=== PATIENT | male | born 1950 | race Caucasian/White ===

== ENCOUNTER 2021-09-08 05:39 | Inpatient (IN) ==
[2021-09-08] MEDS ORDERED: VANCOMYCIN INJ 1,000 MG in SODIUM CHLORIDE 0.9% 250 ML IV ONE (06:00)
[2021-09-08] MEDS ORDERED: CLINDAMYCIN INJ 900 MG/50 ML PREMIX IV ONE (06:00)
[2021-09-08] MEDS ORDERED: TRANEXAMIC ACID 1,000 MG/10 ML VIAL ONE (06:32)
[2021-09-08] MEDS ORDERED: BACITRACIN OINT 0.9 GM PACK TOP ONE (06:32)
[2021-09-08] MEDS ORDERED: MIDAZOLAM 2 MG/2 ML VIAL ONE (06:43)
[2021-09-08] MEDS ORDERED: fentaNYL 100 MCG/2 ML VIAL ONE (06:43)
[2021-09-08] MEDS ORDERED: GABAPENTIN 400 MG CAPSULE PO ONE (06:49)
[2021-09-08] MEDS ORDERED: ACETAMINOPHEN 500 MG TABLET PO ONE (06:49)
[2021-09-08] MEDS ORDERED: SCOPOLAMINE 1.5 MG PATCH TRANSDERM ONE (06:49)
[2021-09-08] MEDS ORDERED: FAMOTIDINE 20 MG TABLET PO ONE (06:49)
[2021-09-08] MEDS ORDERED: BUPIVACAINE SPINAL 0.75% 2 ML AMP SPINAL ONE (06:57)
[2021-09-08] MEDS ORDERED: DEXMEDETOMIDINE 200 MCG/2 ML VIAL ONE (06:57)
[2021-09-08] MEDS ORDERED: PHENYLEPHRINE 10 MG/1 ML VIAL IV ONE (06:57)
[2021-09-08] MEDS ORDERED: ROPIVACAINE 0.5% 30 ML VIAL ONE (07:09)
[2021-09-08] MEDS ORDERED: LIDOCAINE 1% 5 ML VIAL ONE (07:09)
[2021-09-08] MEDS ORDERED: LACTATED RINGERS 1,000 ML IV SCH (07:30)
[2021-09-08] MEDS ORDERED: ePHEDrine 50 MG/ML VIAL ONE (08:37)
[2021-09-08] MEDS ORDERED: ONDANSETRON 4 MG/2 ML VIAL ONE (08:48)
[2021-09-08] MEDS ORDERED: ONDANSETRON 4 MG/2 ML VIAL IV PRN (08:54)
[2021-09-08] MEDS ORDERED: MORPHINE 2 MG/1 ML SYRINGE IV PRN ×2 (08:54)
[2021-09-08] MEDS ORDERED: diphenhydrAMINE CAP 25 MG CAPSULE PO PRN (08:54)
[2021-09-08] MEDS ORDERED: ZALEPLON 5 MG CAPSULE PO PRN (08:54)
[2021-09-08] MEDS ORDERED: SODIUM CHLORIDE 0.9% 100 ML IV ONE (09:35)
[2021-09-08] MEDS ORDERED: ALBUMIN 5% 12.5 GM/250 ML VIAL IV ONE ×2 (11:01→11:12)
[2021-09-08] MEDS ORDERED: ceFAZolin 2,000 MG/50 ML DUPLEX IV SCH (13:00)
[2021-09-08] MEDS: LACTATED RINGERS 1,000 ML IV SCH ×2 (14:18→22:53)
[2021-09-08] MEDS: CLINDAMYCIN INJ 900 MG/50 ML PREMIX IV SCH ×2 (14:19→21:54)
[2021-09-08] MEDS: KETOROLAC 15 MG/1 ML VIAL IV SCH ×2 (14:19→18:02)
[2021-09-08] MEDS: GABAPENTIN 300 MG CAPSULE PO SCH (21:54)
[2021-09-08] MEDS: DOCUSATE SODIUM 100 MG CAPSULE PO SCH (21:54)
[2021-09-08] MEDS: SIMVASTATIN 20 MG TABLET PO SCH (21:54)
[2021-09-09] MEDS: KETOROLAC 15 MG/1 ML VIAL IV SCH ×2 (00:50→06:13)
[2021-09-09] MEDS: FONDAPARINUX 2.5 MG/0.5 ML SYRINGE SUBCUT SCH (04:51)
[2021-09-09 05:40] LABS: Basophils % 0.7 % (0.0-0.8); Eosinophils # 0.2 10*3/uL (0.0-0.87); Eosinophils % 3.4 % (0.00-10.9); Hemoglobin 10.5 GM/DL (14.0-18.0); Immature Granulocytes % 0.2 %; Immature Granulocytes Absolute 0.01 #; Lymphocytes # 0.9 10*3/uL (1.4-4.0); Mean Corpuscular HGB Conc 30.9 GM/DL (32-36); Mean Corpuscular Volume 92.4 FL (87-102); Mean Platelet Volume 10.2 FL (9.6-12.0); Monocytes % 12.1 % (1.7-12.7); Neutrophils % 68.6 % (38.7-73.9); Platelet Count 123 T/CUMM (130-400); Red Blood Count 3.68 MC/CUMM (3.8-5.5); Red Cell Distribution Width 13.8 % (9.3-17.3); White Blood Count 5.9 T/CUMM (4-12)
[2021-09-09 05:57] LABS: Calcium 8.4 MG/DL (8.5-10.1); Potassium 4.6 MMOL/L (3.5-5.1)
[2021-09-09] MEDS: LACTATED RINGERS 1,000 ML IV SCH ×3 (06:14→22:34)
[2021-09-09] MEDS: GABAPENTIN 300 MG CAPSULE PO SCH ×2 (09:02→20:43)
[2021-09-09] MEDS: hydroCHLOROthiazide 12.5 MG CAPSULE PO SCH (09:02)
[2021-09-09] MEDS: PANTOPRAZOLE 40 MG TABLET PO SCH (09:03)
[2021-09-09] MEDS: CITALOPRAM 20 MG TABLET PO SCH (09:03)
[2021-09-09] MEDS: DOCUSATE SODIUM 100 MG CAPSULE PO SCH ×2 (09:03→20:43)
[2021-09-09] MEDS: ASPIRIN EC 81 MG TABLET PO SCH (09:03)
[2021-09-09] MEDS: SIMVASTATIN 20 MG TABLET PO SCH (20:43)
[2021-09-10 04:50] LABS: Basophils % 0.5 % (0.0-0.8); Eosinophils # 0.3 10*3/uL (0.0-0.87); Eosinophils % 4.3 % (0.00-10.9); Hematocrit 32.4 VOL% (42.0-52.0); Hemoglobin 10.2 GM/DL (14.0-18.0); Immature Granulocytes % 0.4 %; Immature Granulocytes Absolute 0.03 #; Lymphocytes # 1.1 10*3/uL (1.4-4.0); Lymphocytes % 13.8 % (21.2-54.2); Mean Corpuscular HGB Conc 31.5 GM/DL (32-36); Mean Corpuscular Volume 91.5 FL (87-102); Monocytes % 12.1 % (1.7-12.7); Neutrophils % 68.9 % (38.7-73.9); Platelet Count 122 T/CUMM (130-400); Red Blood Count 3.54 MC/CUMM (3.8-5.5); Red Cell Distribution Width 13.6 % (9.3-17.3); White Blood Count 7.6 T/CUMM (4-12)
[2021-09-10 05:15] LABS: Calcium 8.7 MG/DL (8.5-10.1); Osmolality,Calculated 280.5 MOS/KG (273-304); Potassium 4.3 MMOL/L (3.5-5.1)
[2021-09-10] MEDS: FONDAPARINUX 2.5 MG/0.5 ML SYRINGE SUBCUT SCH (05:20)
[2021-09-10] MEDS: LACTATED RINGERS 1,000 ML IV SCH (06:12)
[2021-09-10] MEDS: ASPIRIN EC 81 MG TABLET PO SCH (11:11)
[2021-09-10] MEDS: DOCUSATE SODIUM 100 MG CAPSULE PO SCH ×2 (11:11→20:59)
[2021-09-10] MEDS: PANTOPRAZOLE 40 MG TABLET PO SCH (11:12)
[2021-09-10] MEDS: CITALOPRAM 20 MG TABLET PO SCH (11:12)
[2021-09-10] MEDS: GABAPENTIN 300 MG CAPSULE PO SCH ×2 (11:12→20:59)
[2021-09-10] MEDS: hydroCHLOROthiazide 12.5 MG CAPSULE PO SCH (11:13)
[2021-09-10] MEDS: SIMVASTATIN 20 MG TABLET PO SCH (20:59)
[2021-09-11] MEDS: FONDAPARINUX 2.5 MG/0.5 ML SYRINGE SUBCUT SCH (05:12)
[2021-09-11 06:17] LABS: Basophils # 0.1 10*3/uL (0.0-0.2); Basophils % 0.7 % (0.0-0.8); Eosinophils # 0.3 10*3/uL (0.0-0.87); Eosinophils % 3.8 % (0.00-10.9); Hematocrit 30.7 VOL% (42.0-52.0); Hemoglobin 9.7 GM/DL (14.0-18.0); Immature Granulocytes % 0.4 %; Immature Granulocytes Absolute 0.03 #; Lymphocytes # 1.2 10*3/uL (1.4-4.0); Lymphocytes % 17.1 % (21.2-54.2); Mean Corpuscular HGB Conc 31.6 GM/DL (32-36); Mean Corpuscular Volume 89.5 FL (87-102); Mean Platelet Volume 10.1 FL (9.6-12.0); Monocytes % 11.9 % (1.7-12.7); Neutrophils % 66.1 % (38.7-73.9); Platelet Count 121 T/CUMM (130-400); Red Blood Count 3.43 MC/CUMM (3.8-5.5); Red Cell Distribution Width 13.4 % (9.3-17.3)
[2021-09-11] MEDS: CITALOPRAM 20 MG TABLET PO SCH (09:13)
[2021-09-11] MEDS: ASPIRIN EC 81 MG TABLET PO SCH (09:13)
[2021-09-11] MEDS: GABAPENTIN 300 MG CAPSULE PO SCH ×2 (09:13→21:03)
[2021-09-11] MEDS: hydroCHLOROthiazide 12.5 MG CAPSULE PO SCH (09:13)
[2021-09-11] MEDS: DOCUSATE SODIUM 100 MG CAPSULE PO SCH ×2 (09:13→21:03)
[2021-09-11] MEDS: PANTOPRAZOLE 40 MG TABLET PO SCH (09:13)
[2021-09-11] MEDS ORDERED: SODIUM PHOSPHATE ENEMA 133 ML BOTTLE RECTAL PRN (11:30)
[2021-09-11] MEDS: LACTATED RINGERS 1,000 ML IV SCH ×2 (11:52→11:53)
[2021-09-11] MEDS: MAGNESIUM HYDROXIDE SUSP 30 ML UDCUP PO PRN ×2 (12:17→21:03)
[2021-09-11] MEDS: SIMVASTATIN 20 MG TABLET PO SCH (21:03)
[2021-09-12] MEDS: FONDAPARINUX 2.5 MG/0.5 ML SYRINGE SUBCUT SCH (06:40)
[2021-09-12 07:52] VITALS: BP 119/53
[2021-09-12] MEDS: hydroCHLOROthiazide 12.5 MG CAPSULE PO SCH (09:37)
[2021-09-12] MEDS: ASPIRIN EC 81 MG TABLET PO SCH (09:37)
[2021-09-12] MEDS: DOCUSATE SODIUM 100 MG CAPSULE PO SCH (09:37)
[2021-09-12] MEDS: GABAPENTIN 300 MG CAPSULE PO SCH (09:37)
[2021-09-12] MEDS: MAGNESIUM HYDROXIDE SUSP 30 ML UDCUP PO PRN (09:37)
[2021-09-12] MEDS: CITALOPRAM 20 MG TABLET PO SCH (09:37)
[2021-09-12] MEDS: PANTOPRAZOLE 40 MG TABLET PO SCH (09:37)
== END 2021-09-12 12:34 | disposition home health service (06) | DRG 470 ==
LOC: N.OR 05:39 → N.SDSINP 05:42 → N.3E 12:07
PROVIDERS: ADMIT Orthopaedic Surgery; ATTEND Orthopaedic Surgery

== ENCOUNTER 2022-03-12 18:20 | Observation (INO) ==
[2022-03-12 19:02] LABS: Basophils # 0.1 10*3/uL (0.0-0.2); Basophils % 1.1 % (0.0-0.8); Eosinophils # 0.2 10*3/uL (0.0-0.87); Eosinophils % 3.6 % (0.00-10.9); Hematocrit 35.5 VOL% (42.0-52.0); Hemoglobin 11.4 GM/DL (14.0-18.0); Immature Granulocytes % 0.2 %; Immature Granulocytes Absolute 0.01 #; Lymphocytes # 1.6 10*3/uL (1.4-4.0); Lymphocytes % 30.3 % (21.2-54.2); Mean Corpuscular HGB Conc 32.1 GM/DL (32-36); Mean Corpuscular Volume 83.9 FL (87-102); Mean Platelet Volume 9.4 FL (9.6-12.0); Monocytes # 0.6 10*3/uL (0.11-0.8); Monocytes % 11.6 % (1.7-12.7); Neutrophils % 53.2 % (38.7-73.9); Platelet Count 141 T/CUMM (130-400); Red Blood Count 4.23 MC/CUMM (3.8-5.5); Red Cell Distribution Width 14.4 % (9.3-17.3); White Blood Count 5.3 T/CUMM (4-12)
[2022-03-12 19:46] LABS: Albumin 3.3 G/DL (3.4-5.0); Bilirubin,Total 0.4 MG/DL (0.20-1.00); Calcium 8.7 MG/DL (8.5-10.1); Potassium 4.1 MMOL/L (3.5-5.1); Total Protein 6.3 G/DL (6.4-8.2)
[2022-03-12] MEDS ORDERED: ONDANSETRON 4 MG/2 ML VIAL IV PRN (20:19)
[2022-03-12] MEDS ORDERED: NICOTINE 21 MG/24 HR PATCH TRANSDERM PRN (20:19)
[2022-03-12] MEDS ORDERED: ACETAMINOPHEN 325 MG TABLET PO PRN (20:19)
[2022-03-12] MEDS ORDERED: diphenhydrAMINE CAP 25 MG CAPSULE PO PRN (20:19)
[2022-03-12] MEDS ORDERED: hydrALAZINE 20 MG/1 ML VIAL IV PRN (20:19)
[2022-03-12] MEDS ORDERED: ZALEPLON 5 MG CAPSULE PO PRN (20:19)
[2022-03-12] MEDS ORDERED: GLUCAGON 1 MG VIAL IM PRN (20:19)
[2022-03-12] MEDS ORDERED: guaiFENesin/DM ER 600-30 MG TABLET PO PRN (20:19)
[2022-03-12] MEDS ORDERED: DEXTROSE 10% 250 ML BAG IV PRN (20:26)
[2022-03-12] MEDS ORDERED: ENOXAPARIN 40 MG/0.4 ML SYRINGE SUBCUT SCH (21:00)
[2022-03-12] MEDS ORDERED: SODIUM CHLORIDE 0.9% 1,000 ML IV SCH (21:00)
[2022-03-13 01:09] LABS: Basophils # 0.1 10*3/uL (0.0-0.2); Eosinophils # 0.2 10*3/uL (0.0-0.87); Hematocrit 35.8 VOL% (42.0-52.0); Hemoglobin 11.3 GM/DL (14.0-18.0); Immature Granulocytes % 0.5 %; Immature Granulocytes Absolute 0.03 #; Lymphocytes % 32.9 % (21.2-54.2); Mean Corpuscular HGB Conc 31.6 GM/DL (32-36); Mean Corpuscular Volume 85.2 FL (87-102); Mean Platelet Volume 9.6 FL (9.6-12.0); Monocytes # 0.7 10*3/uL (0.11-0.8); Neutrophils % 51.6 % (38.7-73.9); Platelet Count 134 T/CUMM (130-400); Red Cell Distribution Width 14.3 % (9.3-17.3); White Blood Count 5.9 T/CUMM (4-12)
[2022-03-13 01:28] LABS: Calcium 8.5 MG/DL (8.5-10.1); Osmolality,Calculated 275.7 MOS/KG (273-304); Potassium 3.9 MMOL/L (3.5-5.1)
[2022-03-13] MEDS ORDERED: PANTOPRAZOLE 40 MG TABLET PO SCH (06:30)
[2022-03-13 07:37] LABS: Risk Ratio 2.62; VLDL Cholesterol 12.4 MG/DL
[2022-03-13] MEDS ORDERED: ISOSORBIDE MONONITRATE 30 MG TABLET PO SCH (09:00)
[2022-03-13] MEDS ORDERED: ASPIRIN EC 81 MG TABLET PO SCH (09:00)
[2022-03-13] MEDS ORDERED: CITALOPRAM 20 MG TABLET PO SCH (09:00)
[2022-03-13 09:04] VITALS: BP 127/74
[2022-03-13] MEDS ORDERED: SIMVASTATIN 20 MG TABLET PO SCH (21:00)
== END 2022-03-13 10:45 | disposition home or self-care (01) ==
LOC: EDUNIT# → EDBD → N.ED 18:20 → N.TELES 18:20
PROVIDERS: ADMIT Family Medicine; ATTEND Internal Medicine Cardiovascular Disease